=== PATIENT | male | born 1960 | race Caucasian/White ===

== ENCOUNTER 2018-01-17 18:11 | Inpatient (IN) | payer OTHER ==
[2018-01-17 18:37] VITALS: BMI 32.8
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
[2018-01-17] MEDS ORDERED: guaiFENesin/D-METHORPHAN HB 10 ML UNIT-DOSE CUPS PO PRN (22:57)
[2018-01-17] MEDS ORDERED: P-EPHED 60MG/TRIPROLIDI 2.5MG TABLET PO PRN (22:57)
[2018-01-17] MEDS ORDERED: ACETAMINOPHEN 325 MG TABLET (FP) PO PRN (22:57)
[2018-01-17] MEDS ORDERED: MAG HYDROX/AL HYDROX/SIMETH 30 ML UNIT-DOSE CUP PO PRN (22:57)
[2018-01-17] MEDS ORDERED: MAGNESIUM CITRATE 300 ML BOTTLE PO PRN (22:57)
[2018-01-17] MEDS ORDERED: LOPERAMIDE HCL 2 MG CAPSULE PO PRN (22:57)
[2018-01-17] MEDS ORDERED: IBUPROFEN 400 MG TABLET (FP) PO PRN (22:57)
[2018-01-17] MEDS ORDERED: MENTHOL/PHENOL 1 EACH UD MM PRN (22:57)
[2018-01-17] MEDS ORDERED: MAGNESIUM HYDROX 2400MG/30ML ORAL SUSPENSION 30 ML CUP PO PRN (22:57)
[2018-01-17] MEDS ORDERED: TUBERCULIN PPD 5 TU/0.1ML VIAL ID ONE (23:58)
[2018-01-18 05:13] LABS: URINE APPEARANCE CLEAR; URINE BILIRUBIN NEGATIVE (<2.0 mg/dL); URINE COLOR LTYELLOW; URINE GLUCOSE (UA) NEGATIVE (NEGATIVE); URINE KETONE NEGATIVE (NEGATIVE); URINE LEUK ESTERASE NEGATIVE (NEGATIVE); URINE NITRITE NEGATIVE (NEGATIVE); URINE PROTEIN NEGATIVE (NEGATIVE); URINE UROBILINOGEN NEGATIVE mg/dL (0.2-1.0)
[2018-01-18] MEDS ORDERED: hydrOXYzine PAMOATE 50 MG CAPSULE (FP) PO ONE ×2 (07:01→07:15)
[2018-01-18] MEDS: NICOTINE 14 MG/24 HOURS TOPICAL PATCH TD SCH (09:55)
[2018-01-18] MEDS: PRENATAL VITAMINS W/ FOLIC ACID TABLET (FP) PO SCH (09:56)
[2018-01-18 09:57] LABS: CHLORIDE 105 mmol/L (98-107); POTASSIUM 4.2 mmol/L (3.5-5.1); SODIUM 140 mmol/L (136-145)
[2018-01-18 09:58] LABS: HEMATOCRIT 38.6 % (35.4-49); HEMOGLOBIN 13.4 GM/dL (11.7-16.9); MCH 32.5 pg (25.7-33.7); MCHC 34.8 g/dl (32.0-35.9); MEAN CELL VOLUME 93.3 fl (80-96); MEAN PLT VOLUME 7.6 fl (7.5-11.1); PLATELET COUNT 191 K/MM3 (134-434); RBC 4.13 M/mm3 (4.00-5.60); RDW 14.3 % (11.9-15.9); WHITE BLOOD COUNT 5.3 K/mm3 (4.0-10.0)
[2018-01-18 10:13] LABS: ALBUMIN 3.7 g/dl (3.4-5.0); ALK PHOS 85 U/L (45-117); ANION GAP 6 (8-16); BILIRUBIN,TOTAL 0.6 mg/dL (0.2-1.0); BLOOD UREA NITROGEN 19 mg/dL (7-18); CO2 29 mmol/L (21-32); CREATININE 1.2 mg/dL (0.7-1.3); GLUCOSE,RANDOM 85 mg/dL (74-106); SGOT/AST 19 U/L (15-37); SGPT/ALT 27 U/L (12-78)
--- NOTE | 2018-01-18 12:30 | PN ---
[facility] Progress Note Note: Vital Signs Temperature 97.9 F 01/18/18 06:40 Pulse Rate 57 L 01/18/18 06:40 Respiratory Rate 18 01/18/18 06:40 Blood Pressure 119/67 01/18/18 06:40 O2 Sat by Pulse Oximetry (%) Laboratory Last Values WBC 5.3 K/mm3 (4.0-10.0) 01/18/18 08:00 RBC 4.13 M/mm3 (4.00-5.60) 01/18/18 08:00 Hgb 13.4 GM/dL (11.7-16.9) 01/18/18 08:00 Hct 38.6 % (35.4-49) 01/18/18 08:00 MCV 93.3 fl (80-96) 01/18/18 08:00 MCH 32.5 pg (25.7-33.7) 01/18/18 08:00 MCHC 34.8 g/dl (32.0-35.9) 01/18/18 08:00 RDW 14.3 % (11.9-15.9) 01/18/18 08:00 Plt Count 191 K/MM3 (134-434) 01/18/18 08:00 MPV 7.6 fl (7.5-11.1) 01/18/18 08:00 Sodium 140 mmol/L (136-145) 01/18/18 08:00 Potassium 4.2 mmol/L (3.5-5.1) 01/18/18 08:00 Chloride 105 mmol/L (98-107) 01/18/18 08:00 Carbon Dioxide 29 mmol/L (21-32) 01/18/18 08:00 Anion Gap 6 (8-16) L 01/18/18 08:00 BUN 19 mg/dL (7-18) H 01/18/18 08:00 Creatinine 1.2 mg/dL (0.7-1.3) 01/18/18 08:00 Creat Clearance w eGFR > 60 (>60) 01/18/18 08:00 Random Glucose 85 mg/dL (74-106) 01/18/18 08:00 Calcium 9.0 mg/dL (8.5-10.1) 01/18/18 08:00 Total Bilirubin 0.6 mg/dL (0.2-1.0) 01/18/18 08:00 AST 19 U/L (15-37) 01/18/18 08:00 ALT 27 U/L (12-78) 01/18/18 08:00 Alkaline Phosphatase 85 U/L (45-117) 01/18/18 08:00 Total Protein 7.0 g/dl (6.4-8.2) 01/18/18 08:00 Albumin 3.7 g/dl (3.4-5.0) 01/18/18 08:00 Urine Color Ltyellow 01/17/18 23:24 Urine Appearance Clear 01/17/18 23:24 Urine pH 6.0 (5.0-8.0) 01/17/18 23:24 Ur Specific [place] 1.013 (1.001-1.035) 01/17/18 23:24 Urine Protein Negative (NEGATIVE) 01/17/18 23:24 Urine Glucose (UA) Negative (NEGATIVE) 01/17/18 23:24 Urine Ketones Negative (NEGATIVE) 01/17/18 23:24 Urine Blood Negative (NEGATIVE) 01/17/18 23:24 Urine Nitrite Negative (NEGATIVE) 01/17/18 23:24 Urine Bilirubin Negative (<2.0 mg/dL) 01/17/18 23:24 Urine Urobilinogen Negative mg/dL (0.2-1.0) 01/17/18 23:24 Ur Leukocyte Esterase Negative (NEGATIVE) 01/17/18 23:24 Labs reviewed c/o of feeling anxious and chills bosy aches Aox3 no distress no adventitious breath sounds full ROM, skin intact Plan: flexeril PRN increase fluids continue to monitor
--- NOTE | 2018-01-18 12:51 | EKG ---
Test Reason : Blood Pressure : / mmHG Vent. Rate : 042 BPM Atrial Rate : 042 BPM P-R Int : 188 ms QRS Dur : 098 ms QT Int : 472 ms P-R-T Axes : 022 032 040 degrees QTc Int : 394 ms MARKED SINUS BRADYCARDIA ABNORMAL ECG NO PREVIOUS ECGS AVAILABLE Confirmed by CHELITA LÓPEZ MD ([id number]) on 01/18/2018 12:50:42 PM Referred By: Confirmed By:CHELITA LÓPEZ MD
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
[2018-01-18] MEDS ORDERED: PARoxetine HCL 10 MG TABLET (FP) ONE (14:45)
[2018-01-18] MEDS: CYCLOBENZAPRINE HCL 10 MG TABLET (FP) PO SCH ×2 (14:49→21:57)
[2018-01-18] MEDS: hydrOXYzine PAMOATE 50 MG CAPSULE (FP) PO PRN (14:49)
[2018-01-18] MEDS: PARoxetine HCL 20 MG TABLET (FP) PO SCH (14:49)
--- NOTE | 2018-01-18 16:19 | PN ---
[facility] Progress Note Note: Vital Signs Temperature 97.9 F 01/18/18 06:40 Pulse Rate 57 L 01/18/18 06:40 Respiratory Rate 18 01/18/18 06:40 Blood Pressure 119/67 01/18/18 06:40 O2 Sat by Pulse Oximetry (%) Laboratory Last Values WBC 5.3 K/mm3 (4.0-10.0) 01/18/18 08:00 RBC 4.13 M/mm3 (4.00-5.60) 01/18/18 08:00 Hgb 13.4 GM/dL (11.7-16.9) 01/18/18 08:00 Hct 38.6 % (35.4-49) 01/18/18 08:00 MCV 93.3 fl (80-96) 01/18/18 08:00 MCH 32.5 pg (25.7-33.7) 01/18/18 08:00 MCHC 34.8 g/dl (32.0-35.9) 01/18/18 08:00 RDW 14.3 % (11.9-15.9) 01/18/18 08:00 Plt Count 191 K/MM3 (134-434) 01/18/18 08:00 MPV 7.6 fl (7.5-11.1) 01/18/18 08:00 Sodium 140 mmol/L (136-145) 01/18/18 08:00 Potassium 4.2 mmol/L (3.5-5.1) 01/18/18 08:00 Chloride 105 mmol/L (98-107) 01/18/18 08:00 Carbon Dioxide 29 mmol/L (21-32) 01/18/18 08:00 Anion Gap 6 (8-16) L 01/18/18 08:00 BUN 19 mg/dL (7-18) H 01/18/18 08:00 Creatinine 1.2 mg/dL (0.7-1.3) 01/18/18 08:00 Creat Clearance w eGFR > 60 (>60) 01/18/18 08:00 Random Glucose 85 mg/dL (74-106) 01/18/18 08:00 Calcium 9.0 mg/dL (8.5-10.1) 01/18/18 08:00 Total Bilirubin 0.6 mg/dL (0.2-1.0) 01/18/18 08:00 AST 19 U/L (15-37) 01/18/18 08:00 ALT 27 U/L (12-78) 01/18/18 08:00 Alkaline Phosphatase 85 U/L (45-117) 01/18/18 08:00 Total Protein 7.0 g/dl (6.4-8.2) 01/18/18 08:00 Albumin 3.7 g/dl (3.4-5.0) 01/18/18 08:00 Urine Color Ltyellow 01/17/18 23:24 Urine Appearance Clear 01/17/18 23:24 Urine pH 6.0 (5.0-8.0) 01/17/18 23:24 Ur Specific [place] 1.013 (1.001-1.035) 01/17/18 23:24 Urine Protein Negative (NEGATIVE) 01/17/18 23:24 Urine Glucose (UA) Negative (NEGATIVE) 01/17/18 23:24 Urine Ketones Negative (NEGATIVE) 01/17/18 23:24 Urine Blood Negative (NEGATIVE) 01/17/18 23:24 Urine Nitrite Negative (NEGATIVE) 01/17/18 23:24 Urine Bilirubin Negative (<2.0 mg/dL) 01/17/18 23:24 Urine Urobilinogen Negative mg/dL (0.2-1.0) 01/17/18 23:24 Ur Leukocyte Esterase Negative (NEGATIVE) 01/17/18 23:24 RPR Titer Nonreactive (NONREACTIVE) 01/18/18 08:00 Patient requested HIV screen HIV screen order place for the AM continue to monitor
[2018-01-18] MEDS: THIAMINE HCL 100 MG TABLET (FP) PO SCH (21:58)
[2018-01-18] MEDS: OXcarbazepine 300 MG TABLET (UD) PO SCH (22:29)
[2018-01-19] MEDS: CYCLOBENZAPRINE HCL 10 MG TABLET (FP) PO SCH ×3 (06:27→21:14)
[2018-01-19] MEDS ORDERED: PARoxetine HCL 10 MG TABLET (FP) ONE (08:18)
[2018-01-19] MEDS: OXcarbazepine 300 MG TABLET (UD) PO SCH ×2 (10:10→21:15)
[2018-01-19] MEDS: PRENATAL VITAMINS W/ FOLIC ACID TABLET (FP) PO SCH (10:10)
[2018-01-19] MEDS: NICOTINE 14 MG/24 HOURS TOPICAL PATCH TD SCH (10:11)
[2018-01-19] MEDS: PARoxetine HCL 20 MG TABLET (FP) PO SCH (10:11)
[2018-01-19] MEDS: hydrOXYzine PAMOATE 50 MG CAPSULE (FP) PO PRN ×2 (10:12→13:59)
[2018-01-19] MEDS: NICOTINE POLACRILEX 2 MG GUM BC PRN ×3 (10:12→21:15)
--- NOTE | 2018-01-19 10:49 | PN ---
[facility] Progress Note Note: Talked to Dr Varela, patient's psychiatrist. He told video game script writer that he will try to send medication(Invega) for patient. He added that in case medication is not received by the injection due date to go ahead with administration of Risperdal oral
[2018-01-19] MEDS: THIAMINE HCL 100 MG TABLET (FP) PO SCH (21:15)
[2018-01-20] MEDS: CYCLOBENZAPRINE HCL 10 MG TABLET (FP) PO SCH ×3 (06:17→21:31)
[2018-01-20] MEDS: NICOTINE POLACRILEX 2 MG GUM BC PRN ×4 (06:18→21:32)
[2018-01-20] MEDS: hydrOXYzine PAMOATE 50 MG CAPSULE (FP) PO PRN ×3 (07:27→21:31)
[2018-01-20] MEDS ORDERED: PARoxetine HCL 10 MG TABLET (FP) ONE (08:54)
[2018-01-20] MEDS: NICOTINE 14 MG/24 HOURS TOPICAL PATCH TD SCH (10:01)
[2018-01-20] MEDS: PRENATAL VITAMINS W/ FOLIC ACID TABLET (FP) PO SCH (10:01)
[2018-01-20] MEDS: PARoxetine HCL 20 MG TABLET (FP) PO SCH (10:01)
[2018-01-20] MEDS: OXcarbazepine 300 MG TABLET (UD) PO SCH ×2 (10:03→21:29)
[2018-01-20] MEDS: THIAMINE HCL 100 MG TABLET (FP) PO SCH (21:31)
[2018-01-21] MEDS: CYCLOBENZAPRINE HCL 10 MG TABLET (FP) PO SCH ×3 (06:26→21:17)
[2018-01-21] MEDS: NICOTINE POLACRILEX 2 MG GUM BC PRN ×4 (06:28→21:18)
[2018-01-21] MEDS ORDERED: PARoxetine HCL 10 MG TABLET (FP) ONE (08:38)
[2018-01-21] MEDS: PARoxetine HCL 20 MG TABLET (FP) PO SCH (09:53)
[2018-01-21] MEDS: NICOTINE 14 MG/24 HOURS TOPICAL PATCH TD SCH (09:53)
[2018-01-21] MEDS: PRENATAL VITAMINS W/ FOLIC ACID TABLET (FP) PO SCH (09:53)
[2018-01-21] MEDS: OXcarbazepine 300 MG TABLET (UD) PO SCH ×2 (09:53→21:17)
[2018-01-21] MEDS: hydrOXYzine PAMOATE 50 MG CAPSULE (FP) PO PRN (19:32)
[2018-01-21] MEDS: THIAMINE HCL 100 MG TABLET (FP) PO SCH (21:17)
[2018-01-21] MEDS: MELATONIN 5 MG TABLETS PO PRN (21:17)
[2018-01-22] MEDS: CYCLOBENZAPRINE HCL 10 MG TABLET (FP) PO SCH ×3 (06:06→21:21)
[2018-01-22] MEDS: NICOTINE POLACRILEX 2 MG GUM BC PRN ×4 (06:07→21:23)
[2018-01-22] MEDS ORDERED: PARoxetine HCL 10 MG TABLET (FP) ONE (09:07)
[2018-01-22] MEDS: PRENATAL VITAMINS W/ FOLIC ACID TABLET (FP) PO SCH (10:04)
[2018-01-22] MEDS: OXcarbazepine 300 MG TABLET (UD) PO SCH ×2 (10:05→21:21)
[2018-01-22] MEDS: PARoxetine HCL 20 MG TABLET (FP) PO SCH (10:05)
[2018-01-22] MEDS: NICOTINE 14 MG/24 HOURS TOPICAL PATCH TD SCH (10:06)
[2018-01-22] MEDS: THIAMINE HCL 100 MG TABLET (FP) PO SCH (21:21)
[2018-01-22] MEDS: MELATONIN 5 MG TABLETS PO PRN (21:22)
[2018-01-23] MEDS: CYCLOBENZAPRINE HCL 10 MG TABLET (FP) PO SCH ×3 (06:10→21:01)
[2018-01-23] MEDS: NICOTINE POLACRILEX 2 MG GUM BC PRN ×4 (06:11→21:03)
[2018-01-23] MEDS ORDERED: PARoxetine HCL 10 MG TABLET (FP) ONE (09:27)
[2018-01-23] MEDS: PRENATAL VITAMINS W/ FOLIC ACID TABLET (FP) PO SCH (09:59)
[2018-01-23] MEDS: NICOTINE 14 MG/24 HOURS TOPICAL PATCH TD SCH (09:59)
[2018-01-23] MEDS: PARoxetine HCL 20 MG TABLET (FP) PO SCH (10:03)
[2018-01-23] MEDS: OXcarbazepine 300 MG TABLET (UD) PO SCH ×2 (10:24→21:01)
[2018-01-23] MEDS: hydrOXYzine PAMOATE 50 MG CAPSULE (FP) PO PRN (14:11)
[2018-01-23] MEDS: THIAMINE HCL 100 MG TABLET (FP) PO SCH (21:00)
[2018-01-23] MEDS: MELATONIN 5 MG TABLETS PO PRN (21:02)
[2018-01-24] MEDS: NICOTINE POLACRILEX 2 MG GUM BC PRN ×3 (06:16→16:42)
[2018-01-24] MEDS: CYCLOBENZAPRINE HCL 10 MG TABLET (FP) PO SCH ×3 (06:16→21:09)
[2018-01-24] MEDS: PRENATAL VITAMINS W/ FOLIC ACID TABLET (FP) PO SCH (10:11)
[2018-01-24] MEDS: PARoxetine HCL 20 MG TABLET (FP) PO SCH (10:11)
[2018-01-24] MEDS: OXcarbazepine 300 MG TABLET (UD) PO SCH ×2 (10:11→21:09)
[2018-01-24] MEDS: NICOTINE 14 MG/24 HOURS TOPICAL PATCH TD SCH (10:13)
--- NOTE | 2018-01-24 10:39 | PN ---
[facility] Progress Note Note: Rug Cleaner called and reminded Dr Whitt, patient's psychiatrist about patient due date for the injection of Invega Sust[place] on 01/27/18. Dr Whitt informs greeting card writer that it is not possible to send med and and to go ahead and give patient oral Risperdal 2 mg po HS. Patient will be started on Risperdal 2 mg po HS tonight
[2018-01-24] MEDS: THIAMINE HCL 100 MG TABLET (FP) PO SCH (21:09)
[2018-01-24] MEDS: MELATONIN 5 MG TABLETS PO PRN (21:10)
[2018-01-24] MEDS ORDERED: risperiDONE 2 MG TABLET PO SCH (22:00)
[2018-01-25] MEDS: NICOTINE POLACRILEX 2 MG GUM BC PRN ×4 (06:12→21:11)
[2018-01-25] MEDS: CYCLOBENZAPRINE HCL 10 MG TABLET (FP) PO SCH ×3 (06:12→21:10)
[2018-01-25] MEDS: PRENATAL VITAMINS W/ FOLIC ACID TABLET (FP) PO SCH (09:31)
[2018-01-25] MEDS: OXcarbazepine 300 MG TABLET (UD) PO SCH ×2 (09:31→21:10)
[2018-01-25] MEDS: PARoxetine HCL 20 MG TABLET (FP) PO SCH (09:31)
[2018-01-25] MEDS: NICOTINE 14 MG/24 HOURS TOPICAL PATCH TD SCH (09:32)
[2018-01-25] MEDS: hydrOXYzine PAMOATE 50 MG CAPSULE (FP) PO PRN ×2 (13:22→21:10)
--- NOTE | 2018-01-25 13:57 | PN ---
Psychiatric Progress Note Vital Signs: Vital Signs Period Temp Pulse Resp BP Sys/Mauricio Pulse Ox Last 24 Hr 98.5 F 71 20-20 121/69 Date of Session: 01/25/18 Chief Complaint:: Auditory hallucinations HPI: Patient addressing Alcohol and Cocaine Dependence comorbid with Nicotine Dependence, Bipolar Disorder and Substance-Induced Mood Disorder Current Medications: Active Medications Generic Name Dose Route Start Last Admin Trade Name Freq PRN Reason Stop Dose Admin Acetaminophen 650 mg 01/17/18 22:57 Tylenol - PO Q4H PRN FEVER Al Hydroxide/Mg Hydroxide 30 ml 01/17/18 22:57 Mylanta Oral Suspension - PO Q6H PRN DYSPEPSIA Cyclobenzaprine HCl 10 mg 01/18/18 14:00 01/25/18 13:43 Flexeril - PO 10 mg TID SUSAN Administration Eucalyptus/Menthol/Phenol/Sorbitol 1 each 01/17/18 22:57 Cepastat Lozenge - MM Q4H PRN SORE THROAT Guaifenesin 10 ml 01/17/18 22:57 Robitussin Dm - PO Q6H PRN COUGH Hydroxyzine Pamoate 50 mg 01/18/18 14:31 01/25/18 13:22 Vistaril - PO 50 mg Q4H PRN Administration ANXIETY Ibuprofen 400 mg 01/17/18 22:57 Motrin - PO Q6H PRN Pain level 4-6 Loperamide HCl 4 mg 01/17/18 22:57 Imodium - PO Q6H PRN DIARRHEA Magnesium Citrate 300 ml 01/17/18 22:57 Citroma - PO Q48H PRN CONSTIPATION Magnesium Hydroxide 30 ml 01/17/18 22:57 01/18/18 17:25 Milk Of Magnesia - PO 30 ml DAILY PRN Administration CONSTIPATION Melatonin 5 mg 01/17/18 22:00 01/24/18 21:10 Melatonin PO 5 mg HS PRN Administration INSOMNIA Nicotine 14 mg 01/18/18 10:00 01/25/18 09:32 Nicoderm Patch - TD Not Given DAILY SUSAN Nicotine Polacrilex 2 mg 01/17/18 22:57 01/25/18 13:22 Nicorette Gum - BC 2 mg Q2H PRN Administration NICOTINE REPLACEMENT RX Oxcarbazepine 600 mg 01/18/18 22:00 01/25/18 09:31 Trileptal - PO 600 mg BID SUSAN Administration Paroxetine HCl 20 mg 01/18/18 14:45 01/25/18 09:31 Paxil - PO 20 mg DAILY SUSAN Administration Multivit/Folic Acid/Iron 1 tab 01/18/18 10:00 01/25/18 09:31 Vitamins (Sjr) - PO 1 tab DAILY SUSAN Administration Pseudoephedrine/Triprolidine 1 combo 01/17/18 22:57 Actifed - PO TID PRN NASAL CONGESTION Risperidone 2 mg 01/25/18 14:00 Risperdal - PO BID SUSAN Thiamine HCl 100 mg 01/18/18 22:00 01/24/18 21:09 Vitamin B1 - PO 100 mg HS SUSAN Administration Medication(s) Change(s): Increase Risperdal dosage to 2 mg po BID Current Side Effect: No Lab tests ordered: Yes Lab tests reviewed: Yes Provider note:: Requested by nursing staff to see patient fro reporting experiecing auditory hallucinations. Told parts data writer that he heard voices yesterday and earlier today. Claims that he did not hear them for long but they were telling him to hurt himself and beat somebody else. He said that he would not listen to these voices and were able to control them. Total face to face time:: 25 Mental Status Exam - Mental Status Exam Alert and Oriented to: Time, Place, Person Cognitive Function: Fair Patient Appearance: Well Groomed Mood: Hopeful, Euthymic Affect: Appropriate Patient Behavior: Cooperative Speech Pattern: Clear Voice Loudness: Normal Thought Process: Intact, Goal Oriented Hallucinations: Denies (currently but heard voices yesterday and earlier today) Suicidal Ideation: Denies Homicidal Ideation: Denies Insight/Judgement: Fair Sleep: Fair Appetite: Good Muscle strength/Tone: Normal Gait/Station: Normal Psychiatric Treatment Plan - Problem List (1) Alcohol dependence Current Visit: Yes (2) Cocaine dependence Current Visit: Yes (3) Nicotine dependence Current Visit: Yes (4) Bipolar disorder Current Visit: Yes (5) Substance induced mood disorder Current Visit: Yes Initial treatment plan: 1) Discontinue Risperdal as currently ordered. 2) Start Risperdal 2 mg po BID. 3) Monitor progress
[2018-01-25] MEDS: risperiDONE 2 MG TABLET PO SCH ×2 (14:17→21:10)
[2018-01-25] MEDS: THIAMINE HCL 100 MG TABLET (FP) PO SCH (21:10)
[2018-01-26] MEDS: CYCLOBENZAPRINE HCL 10 MG TABLET (FP) PO SCH ×3 (06:18→21:09)
[2018-01-26] MEDS: NICOTINE POLACRILEX 2 MG GUM BC PRN ×5 (06:19→21:11)
[2018-01-26] MEDS: hydrOXYzine PAMOATE 50 MG CAPSULE (FP) PO PRN (08:37)
[2018-01-26] MEDS: PRENATAL VITAMINS W/ FOLIC ACID TABLET (FP) PO SCH (09:57)
[2018-01-26] MEDS: OXcarbazepine 300 MG TABLET (UD) PO SCH ×2 (09:57→21:09)
[2018-01-26] MEDS: risperiDONE 2 MG TABLET PO SCH ×2 (09:58→21:09)
[2018-01-26] MEDS: PARoxetine HCL 20 MG TABLET (FP) PO SCH (09:58)
[2018-01-26] MEDS: NICOTINE 14 MG/24 HOURS TOPICAL PATCH TD SCH (09:58)
--- NOTE | 2018-01-26 16:33 | PN ---
Psychiatric Progress Note Vital Signs: Vital Signs Period Temp Pulse Resp BP Sys/Mauricio Pulse Ox Last 24 Hr 98.9 F 73 18-18 125/71 Date of Session: 01/26/18 Chief Complaint:: Allen hearing voices since i didnt get my Invega injection. Current Medications: Active Medications Generic Name Dose Route Start Last Admin Trade Name Freq PRN Reason Stop Dose Admin Acetaminophen 650 mg 01/17/18 22:57 Tylenol - PO Q4H PRN FEVER Al Hydroxide/Mg Hydroxide 30 ml 01/17/18 22:57 Mylanta Oral Suspension - PO Q6H PRN DYSPEPSIA Benztropine Mesylate 0.5 mg 01/26/18 22:00 Cogentin - PO BID SUSAN Cyclobenzaprine HCl 10 mg 01/18/18 14:00 01/26/18 13:21 Flexeril - PO 10 mg TID SUSAN Administration Eucalyptus/Menthol/Phenol/Sorbitol 1 each 01/17/18 22:57 Cepastat Lozenge - MM Q4H PRN SORE THROAT Guaifenesin 10 ml 01/17/18 22:57 Robitussin Dm - PO Q6H PRN COUGH Haloperidol 5 mg 01/26/18 16:25 Haldol - PO TID PRN AGITATION Hydroxyzine Pamoate 50 mg 01/18/18 14:31 01/26/18 08:37 Vistaril - PO 50 mg Q4H PRN Administration ANXIETY Ibuprofen 400 mg 01/17/18 22:57 Motrin - PO Q6H PRN Pain level 4-6 Loperamide HCl 4 mg 01/17/18 22:57 Imodium - PO Q6H PRN DIARRHEA Magnesium Citrate 300 ml 01/17/18 22:57 Citroma - PO Q48H PRN CONSTIPATION Magnesium Hydroxide 30 ml 01/17/18 22:57 01/18/18 17:25 Milk Of Magnesia - PO 30 ml DAILY PRN Administration CONSTIPATION Melatonin 5 mg 01/17/18 22:00 01/24/18 21:10 Melatonin PO 5 mg HS PRN Administration INSOMNIA Nicotine 14 mg 01/18/18 10:00 01/26/18 09:58 Nicoderm Patch - TD Not Given DAILY SUSAN Nicotine Polacrilex 2 mg 01/17/18 22:57 01/26/18 12:27 Nicorette Gum - BC 2 mg Q2H PRN Administration NICOTINE REPLACEMENT RX Oxcarbazepine 600 mg 01/18/18 22:00 01/26/18 09:57 Trileptal - PO 600 mg BID SUSAN Administration Paroxetine HCl 20 mg 01/18/18 14:45 01/26/18 09:58 Paxil - PO 20 mg DAILY SUSAN Administration Multivit/Folic Acid/Iron 1 tab 01/18/18 10:00 01/26/18 09:57 Vitamins (Sjr) - PO 1 tab DAILY SUSAN Administration Pseudoephedrine/Triprolidine 1 combo 01/17/18 22:57 Actifed - PO TID PRN NASAL CONGESTION Risperidone 2 mg 01/25/18 14:00 01/26/18 09:58 Risperdal - PO 2 mg BID SUSAN Administration Thiamine HCl 100 mg 01/18/18 22:00 01/25/18 21:10 Vitamin B1 - PO 100 mg HS SUSAN Administration Current Side Effect: No Lab tests ordered: No Lab tests reviewed: Yes Provider note:: Chart was revuewed,'s notes appreciated,patient was seen in his room.he addressed ongoing auditory hallucinations voices telling him bad things,criticizing him.according to the patient his Ivega IM once a month used to control his auditory hallucinations.patient also reports that haldol po will give him big relieve,since he used to take it in the past .patient is willing to wait and accept Haldol PRN. Total face to face time:: 35 Mental Status Exam - Mental Status Exam Alert and Oriented to: Time, Place, Person Cognitive Function: Grossly Intact Patient Appearance: Well Groomed Mood: Nervous, Anxious Affect: Mood Congruent, Labile Patient Behavior: Cooperative Speech Pattern: Clear Voice Loudness: Normal Thought Process: Goal Oriented Thought Disorder: Present Hallucinations: Auditory Suicidal Ideation: Denies Homicidal Ideation: Denies Insight/Judgement: Fair Sleep: Fair Appetite: Good Muscle strength/Tone: Normal Gait/Station: Normal Psychiatric Treatment Plan - Problem List (1) Alcohol dependence Current Visit: Yes (2) Cocaine dependence Current Visit: Yes (3) Tobacco dependence Current Visit: Yes (4) Nicotine dependence Current Visit: Yes (5) Bipolar disorder with psychotic features Current Visit: Yes
[2018-01-26] MEDS: HALOPERIDOL 5 MG TABLET (FP) PO PRN (16:52)
[2018-01-26] MEDS: THIAMINE HCL 100 MG TABLET (FP) PO SCH (21:09)
[2018-01-26] MEDS: BENZTROPINE MESYLATE 1 MG TABLET (FP) PO SCH (21:10)
[2018-01-27] MEDS: HALOPERIDOL 5 MG TABLET (FP) PO PRN ×3 (05:12→16:58)
[2018-01-27] MEDS: NICOTINE POLACRILEX 2 MG GUM BC PRN ×5 (05:45→21:12)
[2018-01-27] MEDS: CYCLOBENZAPRINE HCL 10 MG TABLET (FP) PO SCH ×3 (05:45→21:11)
[2018-01-27] MEDS: PARoxetine HCL 20 MG TABLET (FP) PO SCH (09:32)
[2018-01-27] MEDS: OXcarbazepine 300 MG TABLET (UD) PO SCH ×2 (09:32→21:11)
[2018-01-27] MEDS: risperiDONE 2 MG TABLET PO SCH ×2 (09:33→21:12)
[2018-01-27] MEDS: hydrOXYzine PAMOATE 50 MG CAPSULE (FP) PO PRN ×2 (09:33→13:09)
[2018-01-27] MEDS: PRENATAL VITAMINS W/ FOLIC ACID TABLET (FP) PO SCH (09:33)
[2018-01-27] MEDS: BENZTROPINE MESYLATE 1 MG TABLET (FP) PO SCH ×2 (09:33→21:11)
[2018-01-27] MEDS: NICOTINE 14 MG/24 HOURS TOPICAL PATCH TD SCH (09:33)
[2018-01-27] MEDS: THIAMINE HCL 100 MG TABLET (FP) PO SCH (21:11)
[2018-01-27] MEDS: MELATONIN 5 MG TABLETS PO PRN (22:32)
[2018-01-28] MEDS: CYCLOBENZAPRINE HCL 10 MG TABLET (FP) PO SCH ×3 (05:45→21:11)
[2018-01-28] MEDS: NICOTINE POLACRILEX 2 MG GUM BC PRN ×5 (05:45→21:11)
[2018-01-28] MEDS: HALOPERIDOL 5 MG TABLET (FP) PO PRN ×2 (05:45→13:40)
--- NOTE | 2018-01-28 05:51 | PN ---
[facility] Progress Note Note: SEEN FOR REPORTED FALL OOB. CLIENT STATES HE FELL OOB OVERNIGHT BRACING HIS FALLS WITH HIS HANDS. HE REPORTS HITTING THE RIGHT SIDE OF HIS FOREHEAD ON THE FLOOR. DENIES PAIN, INJURY, VISUAL CHANGES, DIZZINESS, LOC, HEADACHE. Vital Signs Temperature 98.0 F 01/27/18 06:54 Pulse Rate 72 01/27/18 06:54 Respiratory Rate 20 01/28/18 03:30 Blood Pressure 125/68 01/27/18 06:54 O2 Sat by Pulse Oximetry (%) SEEN OOB AMBULATING ON UNIT W/O DISTRESS CLIENT EXAMINED AT BEDSIDE A/O X 3 NAD NCAT, PERRLA CV-RRR LUNGS- CTAB SKIN- INTACT NO VISIBLE INJURIES EXTREMITIES- FROM W/O LIMITATIONS X4 BACK- NL INSPECTION UNWITNESSED FALL P-FALL PROTOCOL #[address] REFUSAL OF TXMENT FORM SIGNED CONT TO MONITOR CLINICALLY
[2018-01-28] MEDS: BENZTROPINE MESYLATE 1 MG TABLET (FP) PO SCH ×2 (10:05→21:12)
[2018-01-28] MEDS: NICOTINE 14 MG/24 HOURS TOPICAL PATCH TD SCH (10:05)
[2018-01-28] MEDS: risperiDONE 2 MG TABLET PO SCH ×2 (10:05→21:11)
[2018-01-28] MEDS: OXcarbazepine 300 MG TABLET (UD) PO SCH ×2 (10:05→21:11)
[2018-01-28] MEDS: PRENATAL VITAMINS W/ FOLIC ACID TABLET (FP) PO SCH (10:05)
[2018-01-28] MEDS: PARoxetine HCL 20 MG TABLET (FP) PO SCH (10:05)
[2018-01-28] MEDS: hydrOXYzine PAMOATE 50 MG CAPSULE (FP) PO PRN ×2 (13:40→17:57)
[2018-01-28] MEDS: MELATONIN 5 MG TABLETS PO PRN (21:11)
[2018-01-28] MEDS: THIAMINE HCL 100 MG TABLET (FP) PO SCH (21:11)
[2018-01-29] MEDS: HALOPERIDOL 5 MG TABLET (FP) PO PRN (02:12)
[2018-01-29] MEDS: NICOTINE POLACRILEX 2 MG GUM BC PRN ×3 (02:13→09:18)
[2018-01-29] MEDS: hydrOXYzine PAMOATE 50 MG CAPSULE (FP) PO PRN ×2 (03:34→09:15)
[2018-01-29 06:02] VITALS: TEMP 97.8
[2018-01-29] MEDS: CYCLOBENZAPRINE HCL 10 MG TABLET (FP) PO SCH (06:02)
[2018-01-29 06:39] VITALS: BP 123/81; PULSE 76
--- NOTE | 2018-01-29 07:45 | PN ---
Psychiatric Progress Note Vital Signs: Vital Signs Period Temp Pulse Resp BP Sys/Mauricio Pulse Ox Last 24 Hr 97.8 F-98.6 F 71-83 16-18 115-139/66-81 Date of Session: 01/29/18 Chief Complaint:: Discharge Note HPI: Patient addressing Alcohol and Cocaine Dependencec comorbid with Nicotine dependence, Biplar Disorder and Substance-Induced Mood Disorder Current Medications: Active Medications Generic Name Dose Route Start Last Admin Trade Name Freq PRN Reason Stop Dose Admin Acetaminophen 650 mg 01/17/18 22:57 Tylenol - PO Q4H PRN FEVER Al Hydroxide/Mg Hydroxide 30 ml 01/17/18 22:57 Mylanta Oral Suspension - PO Q6H PRN DYSPEPSIA Benztropine Mesylate 0.5 mg 01/26/18 22:00 01/28/18 21:12 Cogentin - PO 0.5 mg BID SUSAN Administration Cyclobenzaprine HCl 10 mg 01/18/18 14:00 01/29/18 06:02 Flexeril - PO 10 mg TID SUSAN Administration Eucalyptus/Menthol/Phenol/Sorbitol 1 each 01/17/18 22:57 Cepastat Lozenge - MM Q4H PRN SORE THROAT Guaifenesin 10 ml 01/17/18 22:57 Robitussin Dm - PO Q6H PRN COUGH Haloperidol 5 mg 01/26/18 16:25 01/29/18 02:12 Haldol - PO 5 mg TID PRN Administration AGITATION Hydroxyzine Pamoate 50 mg 01/18/18 14:31 01/29/18 03:34 Vistaril - PO 50 mg Q4H PRN Administration ANXIETY Ibuprofen 400 mg 01/17/18 22:57 Motrin - PO Q6H PRN Pain level 4-6 Loperamide HCl 4 mg 01/17/18 22:57 Imodium - PO Q6H PRN DIARRHEA Magnesium Citrate 300 ml 01/17/18 22:57 Citroma - PO Q48H PRN CONSTIPATION Magnesium Hydroxide 30 ml 01/17/18 22:57 01/18/18 17:25 Milk Of Magnesia - PO 30 ml DAILY PRN Administration CONSTIPATION Melatonin 5 mg 01/17/18 22:00 01/28/18 21:11 Melatonin PO 5 mg HS PRN Administration INSOMNIA Nicotine 14 mg 01/18/18 10:00 01/28/18 10:05 Nicoderm Patch - TD Not Given DAILY SUSAN Nicotine Polacrilex 2 mg 01/17/18 22:57 01/29/18 06:44 Nicorette Gum - BC 2 mg Q2H PRN Administration NICOTINE REPLACEMENT RX Oxcarbazepine 600 mg 01/18/18 22:00 01/28/18 21:11 Trileptal - PO 600 mg BID SUSAN Administration Paroxetine HCl 20 mg 01/18/18 14:45 01/28/18 10:05 Paxil - PO 20 mg DAILY SUSAN Administration Multivit/Folic Acid/Iron 1 tab 01/18/18 10:00 01/28/18 10:05 Vitamins (Sjr) - PO 1 tab DAILY SUSAN Administration Pseudoephedrine/Triprolidine 1 combo 01/17/18 22:57 Actifed - PO TID PRN NASAL CONGESTION Risperidone 2 mg 01/25/18 14:00 01/28/18 21:11 Risperdal - PO 2 mg BID SUSAN Administration Thiamine HCl 100 mg 01/18/18 22:00 01/28/18 21:11 Vitamin B1 - PO 100 mg HS SUSAN Administration Current Side Effect: No Lab tests ordered: Yes Lab tests reviewed: Yes Provider note:: Patient has completed this program today. He has met his treatment goals and will continue to address his issues in outpatient treatment at [facility] at [address] [place] [address]. Told financial underwriter that from his participation in this program, he has learned among other things from the nursing teaching of the negative effects of alcohol and drug on the body. He responded well to Trileptal 600 mg po BID, Paxil 20 mg po daily and Risperdal 2 mg po BID. Told financial underwriter that he does not need scripts for these medications since he has enough supply at home till he sees his psychiatrist. He is stable for discharged today Total face to face time:: 35 Mental Status Exam - Mental Status Exam Alert and Oriented to: Time, Place, Person Cognitive Function: Fair Patient Appearance: Well Groomed Mood: Hopeful, Euthymic Affect: Appropriate Patient Behavior: Cooperative Speech Pattern: Clear Voice Loudness: Normal Thought Process: Intact, Goal Oriented Hallucinations: Denies Suicidal Ideation: Denies Homicidal Ideation: Denies Insight/Judgement: Fair Sleep: Fair Appetite: Good Muscle strength/Tone: Normal Gait/Station: Normal Psychiatric Treatment Plan - Problem List (1) Alcohol dependence Current Visit: Yes (2) Cocaine dependence Current Visit: Yes (3) Nicotine dependence Current Visit: Yes (4) Bipolar disorder Current Visit: Yes (5) Substance induced mood disorder Current Visit: Yes Initial treatment plan: Patient is discharged today and [facility] to [facility] treatment
[2018-01-29] MEDS: NICOTINE 14 MG/24 HOURS TOPICAL PATCH TD SCH (09:15)
[2018-01-29] MEDS: OXcarbazepine 300 MG TABLET (UD) PO SCH (09:15)
[2018-01-29] MEDS: PARoxetine HCL 20 MG TABLET (FP) PO SCH (09:15)
[2018-01-29] MEDS: PRENATAL VITAMINS W/ FOLIC ACID TABLET (FP) PO SCH (09:15)
[2018-01-29] MEDS: risperiDONE 2 MG TABLET PO SCH (09:15)
[2018-01-29] MEDS: BENZTROPINE MESYLATE 1 MG TABLET (FP) PO SCH (09:15)
== END 2018-01-29 11:15 | disposition home or self-care (01) | DRG 772 ==
LOC: YASAS 18:11 → Y5N 21:54
PROVIDERS: ADMIT Psychiatry & Neurology Psychiatry; ATTEND Psychiatry & Neurology Psychiatry
PROC: HZ42ZZZ Group Counseling for Substance Abuse Treatment, Cognitive-Behavioral (ICD-10-PCS; principal; 2018-01-17)
DX: F10.20 Alcohol dependence, uncomplicated (principal); F14.20 Cocaine dependence, uncomplicated; F17.210 Nicotine dependence, cigarettes, uncomplicated; F31.89 Other bipolar disorder; F19.24 Other psychoactive substance dependence with psychoactive substance-induced mood disorder; W06.XXXA Fall from bed, initial encounter; Y93.89 Activity, other specified; Y92.230 Patient room in hospital as the place of occurrence of the external cause; Z91.5 Personal history of self-harm
CPT/HCPCS: 36415; 80053; 81003; 85027; 86593; 87389; 93005; 93010